=== PATIENT | female | born 1965 | race Caucasian/White ===

== ENCOUNTER 2020-06-22 08:04 | Outpatient (REF) | payer OTHER, SELFPAY ==
[2020-06-22 11:25] LABS: MANUAL DIFF FLAG NO
[2020-06-22 11:32] LABS: Basophils Absolute Auto 0.1 X10*3/uL (0.0-0.2); Basophils Percent Auto 0.9 % (0-2); Eosinophils Absolute Auto 0.2 X10*3/uL (0.0-0.4); Eosinophils Percent Auto 4.4 % (0-4); Hematocrit 42.8 % (37-47); Imm Gran Abs Auto 0.02 X10*3/uL (0.00-0.03); Imm Gran Pct Auto 0.4 % (0.0-0.4); Lymphocytes Absolute Auto 1.7 X10*3/uL (1.2-4.9); Lymphocytes Percent Auto 31.4 % (20-40); Mean Corpuscular HGB Conc 32.7 g/dl (31.0-35.0); Mean Corpuscular Hemoglobin 26.8 pg (27.0-33.0); Mean Corpuscular Volume 81.8 fL (80-98); Mean Platelet Volume 11.3 fL (9.4-12.3); Monocytes Absolute Auto 0.4 X10*3/uL (0.1-1.2); Monocytes Percent Auto 7.5 % (2-11); Neutrophils Percent Auto 55.4 % (45-73); Platelet Count 340 X10*3/uL (160-400); Red Blood Count 5.23 X10*6/uL (4.20-5.50); Red Cell Distribution Width 14.6 % (11.0-16.0); White Blood Count 5.4 X10*3/uL (4.8-10.8)
[2020-06-22 12:05] LABS: Anion Gap 15 (12-20); Blood Urea Nitrogen 22 mg/dL (9-16); Calcium 8.9 mg/dL (8.4-10.2); Carbon Dioxide 24 mmol/L (22-29); Chloride 105 mmol/L (96-108); Cholesterol 217 mg/dL; Estimated Glomerular Filt Rate > 60; Glucose Fasting 93 mg/dL (60-99); HDL Cholesterol 52 mg/dL; LDL Cholesterol Calculated 150 mg/dl; Potassium 4.5 mmol/L (3.3-5.1); Sodium 139 mmol/L (135-145); Triglycerides 76 mg/dL
[2020-06-22 12:09] LABS: TSH reflex Free T4 2.23 uIU/mL (0.32-4.0)
[2020-06-23 19:37] LABS: Vitamin B12 610 pg/mL (200-900)
[2020-06-26 13:17] LABS: Vitamin D 25-OH, D2 <4 ng/mL; Vitamin D 25-OH, D3 34 ng/mL; Vitamin D 25-OH, Total 34 ng/mL (30-100)
== END 2020-06-22 08:05 | disposition home or self-care (01) ==
LOC: HO.HMGCLDS 08:04
PROVIDERS: PCP Internal Medicine; Visit Provider Internal Medicine
DX: Z00.01 Encounter for general adult medical examination with abnormal findings (principal); R53.83 Other fatigue; R03.0 Elevated blood-pressure reading, without diagnosis of hypertension; E78.9 Disorder of lipoprotein metabolism, unspecified; E66.01 Morbid (severe) obesity due to excess calories; E03.9 Hypothyroidism, unspecified
CPT/HCPCS: 36415; 80048; 80061; 82306; 82607; 84443; 85025

== ENCOUNTER → 2020-07-20 14:22 | Outpatient (BNVA) | payer OTHER, SELFPAY | PROVIDERS: PCP Internal Medicine; Visit Provider Nurse Practitioner Family ==

== ENCOUNTER 2020-07-28 15:12 | Outpatient (REF) | payer OTHER, SELFPAY ==
[2020-07-28 17:11] LABS: Alanine Aminotransferase 22 U/L (0-31); Albumin Level 4.4 g/dL (3.5-5.0); Alkaline Phosphatase 78 U/L (39-117); Aspartate Amino Transferase 19 U/L (5-31); Bilirubin Direct 0.2 mg/dL (0.0-0.5); Bilirubin Total 0.5 mg/dL (0.0-1.0); Total Protein 7.4 g/dL (6.5-8.0)
== END 2020-07-28 15:13 | disposition home or self-care (01) ==
LOC: HO.HMGCLDS 15:12
PROVIDERS: PCP Internal Medicine; Visit Provider Nurse Practitioner Family
DX: Z12.11 Encounter for screening for malignant neoplasm of colon (principal)
CPT/HCPCS: 36415; 80076

== ENCOUNTER 2020-08-06 08:47 | Outpatient (REF) | payer OTHER, SELFPAY ==
--- NOTE | ~2020-08-06 | MM_ITS ---
EXAMINATION: MM SCREENING DIGITAL BREAST TOMOSYNTHESIS, BILATERAL CLINICAL INFORMATION: Screening. Asymptomatic. The lifetime risk of breast cancer based on the Tyrer-Cuzick Model is 10%. COMPARISON: Mammography: 11/07/2018, 08/22/2017; targeted right breast ultrasound 11/13/2018 TECHNIQUE: Digital breast tomosynthesis is performed in both the craniocaudal and mediolateral oblique views along with computer-aided detection (CAD). Synthesized 2D images are generated from the tomosynthesis. FINDINGS: There are scattered areas of fibroglandular density (ACR BI-RADS breast composition Category b). There are scattered small bilateral smooth nodularity again noted similar to prior studies. A dominant nodule right upper outer breast consistent with cyst on targeted ultrasound 2019 has resolved. There is no significant mass or architectural abnormality. No abnormal calcifications. The axilla and skin contours are unremarkable. MM/MM tomosynthesis screening BI IMPRESSION: 1. No mammographic evidence of malignancy. 2. Interval resolution dominant cyst right breast upper outer quadrant since 2019. ASSESSMENT: BI-RADS 2: Benign RECOMMENDATION: Routine annual mammography screening. This patient's information was entered into a reminder system with a target due date for their next mammogram.
== END 2020-08-06 08:48 | disposition home or self-care (01) ==
LOC: HO.MAMMO 08:47
PROVIDERS: Visit Provider Internal Medicine
DX: Z12.31 Encounter for screening mammogram for malignant neoplasm of breast (principal)
CPT/HCPCS: 77063; 77067

== ENCOUNTER 2021-08-09 09:32 | Outpatient (REF) | payer OTHER, SELFPAY ==
[2021-08-09 11:09] LABS: MANUAL DIFF FLAG NO
[2021-08-09 11:33] LABS: Basophils Absolute Auto 0.1 X10*3/uL (0.0-0.2); Basophils Percent Auto 0.9 % (0-2); Eosinophils Absolute Auto 0.2 X10*3/uL (0.0-0.4); Eosinophils Percent Auto 2.7 % (0-4); Hematocrit 43.7 % (37.0-47.0); Imm Gran Abs Auto 0.03 X10*3/uL (0.00-0.03); Imm Gran Pct Auto 0.5 % (0.0-0.4); Lymphocytes Absolute Auto 1.7 X10*3/uL (1.2-4.9); Lymphocytes Percent Auto 29.2 % (20-40); Mean Corpuscular Hemoglobin 26.2 pg (27.0-33.0); Mean Corpuscular Volume 81.8 fL (80.0-98.0); Mean Platelet Volume 10.4 fL (9.4-12.3); Monocytes Absolute Auto 0.5 X10*3/uL (0.1-1.2); Monocytes Percent Auto 8.4 % (2-11); Neutrophils Absolute Auto 3.4 x10*3/uL (2.0-8.3); Neutrophils Percent Auto 58.3 % (45-73); Platelet Count 333 X10*3/uL (160-400); Red Blood Count 5.34 X10*6/uL (4.20-5.50); White Blood Count 5.9 X10*3/uL (4.8-10.8)
[2021-08-09 11:51] LABS: Alanine Aminotransferase 14 U/L (0-31); Albumin Level 4.2 g/dL (3.5-5.0); Alkaline Phosphatase 80 U/L (39-117); Anion Gap 14 (12-20); Aspartate Amino Transferase 17 U/L (5-31); Bilirubin Direct 0.3 mg/dL (0.0-0.5); Bilirubin Total 0.8 mg/dL (0.0-1.0); Blood Urea Nitrogen 17 mg/dL (9-16); Calcium 9.3 mg/dL (8.4-10.2); Carbon Dioxide 23 mmol/L (22-29); Chloride 106 mmol/L (96-108); Estimated Glomerular Filt Rate > 60; Glucose Fasting 99 mg/dL (60-99); Potassium 4.6 mmol/L (3.3-5.1); Sodium 138 mmol/L (135-145); Total Protein 7.5 g/dL (6.5-8.0)
[2021-08-09 12:35] LABS: TSH reflex Free T4 3.38 uIU/mL (0.32-4.0)
== END 2021-08-09 09:33 | disposition home or self-care (01) ==
LOC: HO.HMGCLDS 09:32
PROVIDERS: PCP Internal Medicine; Visit Provider Internal Medicine
DX: E03.9 Hypothyroidism, unspecified (principal); E66.01 Morbid (severe) obesity due to excess calories; E78.9 Disorder of lipoprotein metabolism, unspecified
CPT/HCPCS: 36415; 80053; 80076; 82248; 84443; 85025

== ENCOUNTER 2023-01-30 15:05 | Outpatient (AMB) | payer OTHER, SELFPAY ==
--- NOTE | 2023-01-30 15:06 | A.OFFPC_ITS ---
Vital Signs 01/30/23 15:16 Height 5 ft 8 in Weight 278 lb 4 oz BMI 42.3 BP 136/86 Blood Pressure Location Rt brachial Position Sitting Pulse 102 H Pulse Source Pulse Oximeter Pulse Oximetry (%) 96 Oxygen Delivery Method Room Air Intake Visit Reasons: Medication Review Allergies bupropion [From Wellbutrin] Adverse Reaction (Intermediate, Verified 01/30/23 15:06) anxiety, ringing in ears Medication List - Last Reconciled 01/30/23 by Anastacio Bella MD levothyroxine 150 mcg PO DAILY omeprazole 20 mg PO DAILY 90 days Tobacco use date assessed: 01/30/23 Dental Screening Dental Screen Date: 01/30/23 Did you have a dental visit in the last 12 months?: Yes Did you have a dental problem in the last 6 months where you did not have access to dental care?: No Was dental information given to patient?: Patient has dentist HPI Medication Review HPI Details Patient is a 57-year-old female came in today for regular follow-up visit. Last visit was July last year Patient says that there was some problems with finding place to stay So she was taking with her daughter but finally she has her own place. She has not been taking her levothyroxine regularly, she is feeling the symptoms are hypothyroidism With swelling and puffiness around her eyes constipation and brittle nails. Patient is due for labs Hypothyroidism: Patient is taking levothyroxine 150 mcg , refill sent patient is to do labs in 6 weeks Chronic GERD stable with omeprazole 20 mg. BMI is 42.3 patient is morbidly obese, she says that it is difficult for her lose weight but she is trying. Follow-up 6 months for physical exam notified patient that if she is not able to come in we can always do a telemedicine visit but we need to see her periodically. In order to continue prescribing medication. [facility] Medical History GERD (gastroesophageal reflux disease) Hypothyroid Morbid obesity Surgical History No pertinent past surgical history Family History Father Myocardial infarction Mother Hyperlipidemia Alzheimer's disease Dementia CVD (cardiovascular disease) Brother Addisons disease Maternal Grandmother No problems noted. Maternal Grandfather No problems noted. Paternal Grandfather No problems noted. Paternal Grandmother No problems noted. Paternal Uncle Diabetes mellitus Brother No problems noted. Brother No problems noted. Brother No problems noted. Sister No problems noted. Daughter No problems noted. Other Mental health disorder Social History Housing: Apartment Alcohol intake: current Alcohol intake frequency: holidays/special occasions only Patient Tobacco Use Status: Former Tobacco user Years Smoked: 30 years e-Cigarette/Vaping Use: Never Used Current occupational status: employed Cognitive needs: No Hearing needs: No Vision needs: No Questionnaire PHQ-9 Over the last 2 weeks, how often have you been bothered by any of the following problems? 1. Little interest or pleasure in doing things: not at all 2. Feeling down, depressed, or hopeless: not at all 3. Trouble falling or staying asleep, or sleeping too much: not at all 4. Feeling tired or having little energy: not at all 5. Poor appetite or overeating: not at all 6. Feeling bad about yourself - or that you are a failure or have let yourself or your family down: not at all 7. Trouble concentrating on things, such as reading the newspaper or watching television: not at all 8. Moving or speaking so slowly that other people could have noticed. Or the opposite - being so fidgety or restless that you have been moving around a lot more than usual: not at all 9. Thoughts that you would be better off or of hurting yourself in some way: not at all Total score: 0 Depression Screening Interpretation: Negative Depression Screening Done: Yes 52670 - PHQ-9 Billing: Yes Source: Developed by Drs. Yoni Eaton, Maris Omalley, Cong Cote and colleagues, with an educational alexa from [employer]. Thrive Questionnaire Date Thrive assessed: 08/09/21 AUDIT C Alcohol Use Questionnaire (AUDIT-C) 1. How often do you have a drink containing alcohol?: Never 3. How often do you have six or more drinks on one occasion?: Never Total Score: 0 Score Reviewed/Action Taken: Yes MONICO-7 AMB Questionnaire MONICO-7 Date MONICO - 7 assessed: 08/09/21 Source: Developed by Drs. Yoni Eaton, Maris Omalley, Cong Cote and colleagues, with an educational alexa from [employer]. Review of Systems Const Denies chills and Denies fever(s) ENT Denies epistaxis and Denies nasal discharge Card Denies chest pain Resp Denies chest congestion, Denies cough and Denies hemoptysis GI Denies diarrhea and Denies nausea Skin/Breast Denies rash Neuro Reports no additional complaints Psych Reports no additional complaints Endo Reports no additional complaints Physical exam (Primary Care) Vital Signs: Last Vital Signs Pulse 102 H 01/30/23 15:16 BP 136/86 01/30/23 15:16 Pulse Ox 96 01/30/23 15:16 Oxygen Delivery Method Room Air 01/30/23 15:16 BMI result Body Mass Index 42.3 Tobacco/Smoking Status: Tobacco use Status Tobacco use date assessed 01/30/23 01/30/23 15:08 Patient Tobacco Use Status Former Tobacco user 01/30/23 15:08 e-Cigarette/Vaping Use Never Used 01/30/23 15:16 Depression Screening Interpretation: Negative Thrive Assessment: Date of Thrive Assessment Date Thrive assessed 08/09/21 01/30/23 15:08 Const General: cooperative, comfortable and no acute distress Orientation/consciousness: patient oriented x3 HENMT Head: Yes normocephalic Eyes General: appearance normal, both eyes and all related structures Neck Neck: Yes supple Resp Effort & Inspection: normal respiratory effort, no cough and no stridor Cardio Rhythm: regular rhythm Heart sounds: S1 normal heart sound present and S2 normal heart sound present Skin General skin exam: turgor normal Neuro General: patient oriented x3, tone normal and moves all extremities Extrem Right lower extremity: no edema Left lower extremity: no edema Assessment and Plan Assessment & Plan (1) Hypothyroidism: Code(s): E03.9 - Hypothyroidism, unspecified Qualifiers: Hypothyroidism type: unspecified Qualified Code(s): E03.9 - Hypothyroidism, unspecified (2) Morbid obesity due to excess calories: Code(s): E66.01 - Morbid (severe) obesity due to excess calories (3) Chronic GERD: Code(s): K21.9 - Gastro-esophageal reflux disease without esophagitis (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 Last visit was July last year Patient says that there was some problems with finding place to stay So she was taking with her daughter but finally she has her own place. She has not been taking her levothyroxine regularly, she is feeling the symptoms are hypothyroidism With swelling and puffiness around her eyes constipation and brittle nails. Patient is due for labs Hypothyroidism: Patient is taking levothyroxine 150 mcg , refill sent patient is to do labs in 6 weeks Chronic GERD stable with omeprazole 20 mg. Patient have a history of lipid metabolism disorder, and strong family history of cardiac events. I have added lipids to her labs patient is to do labs fasting BMI is 42.3 patient is morbidly obese, she says that it is difficult for her lose weight but she is trying. Follow-up 6 months for physical exam notified patient that if she is not able to come in we can always do a telemedicine visit but we need to see her periodically. In order to continue prescribing medication. Orders: Orders TSH reflex Free T4 Today E03.9 - Hypothyroidism, unspecified, E66.01 - Morbid (severe) obesity due to excess calories, E78.9 - Disorder of lipoprotein metabolism, unspecified, K21.9 - Gastro-esophageal reflux disease without esophagitis Complete Blood Count Auto Diff Today E03.9 - Hypothyroidism, unspecified, E66.01 - Morbid (severe) obesity due to excess calories, E78.9 - Disorder of lipoprotein metabolism, unspecified, K21.9 - Gastro-esophageal reflux disease without esophagitis Lipid Panel Today E78.9 - Disorder of lipoprotein metabolism, unspecified Comprehensive [place]. Panel Fast Today E78.9 - Disorder of lipoprotein metabolism, unspecified Medications: Refilled omeprazole 20 mg PO DAILY 90 caps 1RF 90 days levothyroxine take one tab in am 6 days a week 150 mcg PO DAILY 90 tabs 0RF Coding Level of Care Code Est Pt Level 4 (69181) Diagnoses Hypothyroidism, unspecified type E03.9 Hypothyroidism type: unspecified Morbid obesity due to excess calories E66.01 Chronic GERD K21.9 Lipid metabolism disorder E78.9
[2023-01-30 15:16] VITALS: BP 136/86; PULSE 102; O2SAT 96; BMI 42.3
== END 2023-01-30 15:41 | disposition home or self-care (01) ==
PROVIDERS: PCP Internal Medicine; Visit Provider Internal Medicine
DX: E03.9 Hypothyroidism, unspecified (principal); E66.01 Morbid (severe) obesity due to excess calories; Z68.41 Body mass index [BMI] 40.0-44.9, adult; K21.9 Gastro-esophageal reflux disease without esophagitis; E78.9 Disorder of lipoprotein metabolism, unspecified
CPT/HCPCS: 99214

== ENCOUNTER 2023-04-23 09:20 | Outpatient (REF) | payer OTHER, SELFPAY ==
[2023-04-23 11:12] LABS: MANUAL DIFF FLAG NO
[2023-04-23 11:30] LABS: Basophils Absolute Auto 0.1 X10*3/uL (0.0-0.2); Basophils Percent Auto 0.8 % (0-2); Eosinophils Absolute Auto 0.3 X10*3/uL (0.0-0.4); Eosinophils Percent Auto 4.9 % (0-4); Hematocrit 42.8 % (37.0-47.0); Hemoglobin 13.8 g/dl (12.0-16.0); Imm Gran Abs Auto 0.01 X10*3/uL (0.00-0.03); Imm Gran Pct Auto 0.2 % (0.0-0.4); Lymphocytes Absolute Auto 1.8 X10*3/uL (1.2-4.9); Lymphocytes Percent Auto 28.9 % (20-40); Mean Corpuscular HGB Conc 32.2 g/dl (31.0-35.0); Mean Corpuscular Hemoglobin 26.4 pg (27.0-33.0); Mean Platelet Volume 10.5 fL (9.4-12.3); Monocytes Absolute Auto 0.5 X10*3/uL (0.1-1.2); Neutrophils Absolute Auto 3.6 x10*3/uL (2.0-8.3); Neutrophils Percent Auto 57.2 % (45-73); Platelet Count 314 X10*3/uL (160-400); Red Blood Count 5.22 X10*6/uL (4.20-5.50); Red Cell Distribution Width 14.1 % (11.0-16.0); White Blood Count 6.3 X10*3/uL (4.8-10.8)
[2023-04-23 11:55] LABS: Alanine Aminotransferase 13 U/L (0-31); Alkaline Phosphatase 84 U/L (39-117); Anion Gap 13 (12-20); Aspartate Amino Transferase 16 U/L (5-31); Bilirubin Total 0.4 mg/dL (0.0-1.0); Blood Urea Nitrogen 20 mg/dL (9-16); Calcium 9.1 mg/dL (8.4-10.2); Carbon Dioxide 25 mmol/L (22-29); Chloride 107 mmol/L (96-108); Cholesterol 186 mg/dL (<200); Estimated Glomerular Filt Rate > 60; Glucose Fasting 95 mg/dL (60-99); HDL Cholesterol 53 mg/dL (>40); LDL Cholesterol Calculated 117 mg/dL (<100); Potassium 4.5 mmol/L (3.3-5.1); Sodium 140 mmol/L (135-145); Total Protein 7.4 g/dL (6.5-8.0); Triglycerides 80 mg/dL (<150)
[2023-04-23 12:10] LABS: TSH reflex Free T4 3.41 uIU/mL (0.32-4.0)
== END 2023-04-23 09:21 | disposition home or self-care (01) ==
LOC: HO.HMGCLDS 09:20
PROVIDERS: PCP Internal Medicine; Visit Provider Internal Medicine
DX: E66.01 Morbid (severe) obesity due to excess calories (principal); K21.9 Gastro-esophageal reflux disease without esophagitis; E03.9 Hypothyroidism, unspecified; E78.9 Disorder of lipoprotein metabolism, unspecified
CPT/HCPCS: 36415; 80053; 80061; 84443; 85025

== ENCOUNTER 2023-07-04 15:15 | Outpatient (REF) | payer OTHER, SELFPAY | END 2023-07-04 15:16 | disposition home or self-care (01) | LOC: HO.MAMMO 15:15 | PROVIDERS: PCP Internal Medicine; Visit Provider Internal Medicine | DX: Z12.31 Encounter for screening mammogram for malignant neoplasm of breast (principal) | CPT/HCPCS: 77063; 77067 ==

== ENCOUNTER → 2023-07-04 15:30 | Outpatient (BNV) | payer OTHER, SELFPAY | PROVIDERS: PCP Internal Medicine; Visit Provider Radiology Diagnostic Radiology | DX: Z12.31 Encounter for screening mammogram for malignant neoplasm of breast (principal) | CPT/HCPCS: 77063; 77067 ==

== ENCOUNTER 2023-08-13 12:52 | Outpatient (AMB) | payer OTHER, SELFPAY ==
[2023-08-13 13:02] VITALS: BP 122/76; PULSE 100; O2SAT 97; BMI 40.7
--- NOTE | 2023-08-13 13:02 | MHC.PC.OV ---
Vital Signs 08/13/23 13:02 Height 5 ft 8 in Weight 268 lb BMI 40.7 BP 122/76 Blood Pressure Location Rt brachial Position Sitting Pulse 100 Pulse Source Pulse Oximeter Pulse Oximetry (%) 97 Oxygen Delivery Method Room Air Intake Visit Reasons: Annual PE Intake Note: Pt is here today for PE. Allergies bupropion [From Wellbutrin] Adverse Reaction (Intermediate, Verified 08/13/23 13:03) anxiety, ringing in ears Medication List - Last Reconciled 08/13/23 by Anastacio Bella MD levothyroxine 150 mcg PO DAILY omeprazole 20 mg PO DAILY 90 days Tobacco use date assessed: 08/13/23 Dental Screening Dental Screen Date: 08/13/23 Did you have a dental visit in the last 12 months?: Yes Did you have a dental problem in the last 6 months where you did not have access to dental care?: No Was dental information given to patient?: Patient has dentist HPI Annual PE HPI Details Patient is 58-year-old female came in for physical examination Patient is gradually losing weight she is on a diet Complaining of joint aches and pains for that she is taking Tylenol Patient never had colonoscopy she does not wanted She wanted Cologuard which I did order however she has not sent the sample yet Due for Pap smear, tiny her placed Continue levothyroxine 150 mcg and omeprazole 20 mg for chronic GERD Due for labs Follow-up 6 months, labs are needed before visit. [facility] Medical History GERD (gastroesophageal reflux disease) Hypothyroid Morbid obesity Surgical History No pertinent past surgical history Family History Father Myocardial infarction Mother Hyperlipidemia Alzheimer's disease Dementia CVD (cardiovascular disease) Brother Addisons disease Maternal Grandmother No problems noted. Maternal Grandfather No problems noted. Paternal Grandfather No problems noted. Paternal Grandmother No problems noted. Paternal Uncle Diabetes mellitus Brother No problems noted. Brother No problems noted. Brother No problems noted. Sister No problems noted. Daughter No problems noted. Other Mental health disorder Social History Housing: Apartment Alcohol intake: current Alcohol intake frequency: holidays/special occasions only Patient Tobacco Use Status: Former Tobacco user Years Smoked: 30 years e-Cigarette/Vaping Use: Never Used service: No Current occupational status: employed Cognitive needs: No Hearing needs: No Vision needs: No Questionnaire PHQ-9 Over the last 2 weeks, how often have you been bothered by any of the following problems? 1. Little interest or pleasure in doing things: not at all 2. Feeling down, depressed, or hopeless: not at all 3. Trouble falling or staying asleep, or sleeping too much: not at all 4. Feeling tired or having little energy: not at all 5. Poor appetite or overeating: not at all 6. Feeling bad about yourself - or that you are a failure or have let yourself or your family down: not at all 7. Trouble concentrating on things, such as reading the newspaper or watching television: not at all 8. Moving or speaking so slowly that other people could have noticed. Or the opposite - being so fidgety or restless that you have been moving around a lot more than usual: not at all 9. Thoughts that you would be better off or of hurting yourself in some way: not at all Total score: 0 Depression Screening Interpretation: Negative Depression Screening Done: Yes 32993 - PHQ-9 Billing: Yes Source: Developed by Drs. Yoni Eaton, Maris Omalley, Cong Cote and colleagues, with an educational alexa from [employer]. Thrive Questionnaire Date Thrive assessed: 08/13/23 I am a: Patient What is your living situation today?: I have a steady place to live Within the past 12 months, did the food you bought not last and you didn't have the money to get more?: Never true Within the past 12 months, did you worry whether your food would run out before you got money to buy more?: Never true Do you have trouble paying for medicines?: No Do you have trouble getting transportation to medical appointments?: No Do you have trouble paying your heating and electricity bill?: No Do you have trouble taking care of your child, family member or friend?: No Do you have trouble with day-to-day activities such as bathing, preparing meals, shopping, managing finances, etc.?: No Are you currently unemployed and looking for a job?: No Are you interested in more education?: No Please select the resources that you would like help with: None Currently or been in a relationship where the following occur: no concerns reported THRIVE Score: 0 AUDIT C Alcohol Use Questionnaire (AUDIT-C) 1. How often do you have a drink containing alcohol?: Monthly or less 2. How many drinks containing alcohol do you have on a typical day when you are drinking?: 1 or 2 3. How often do you have six or more drinks on one occasion?: Never Total Score: 1 Score Reviewed/Action Taken: Yes MONICO-7 AMB Questionnaire MONICO-7 Date MONICO - 7 assessed: 08/13/23 Feeling nervous, anxious, or on edge: 0 = Not at all Not being able to stop or control worryin = Not at all Worrying too much about different things: 0 = Not at all Trouble relaxin = Not at all Being so restless that it is hard to sit still: 0 = Not at all Becoming easily annoyed or irritable: 0 = Not at all Feeling afraid as if something awful might happen: 0 = Not at all Total MONICO-7 score (0-4 normal; 5-9 mild; 10-14 moderate; 15-21 severe): 0 Source: Developed by Drs. Yoni Eaton, Maris Omalley, Cong Cote and colleagues, with an educational alexa from [employer]. MONICO-7 Assessment Billing MONICO-7 Assessment Tool: MONICO-7 Assessment 00396 Review of Systems Const Denies chills, Denies fever(s) and Denies headache(s) Eyes Denies blurry vision ENT Denies headache(s), Denies nasal discharge, Denies nasal obstruction, Denies odynophagia and Denies sinus pain Card Denies chest pain at rest and Denies chest pain with activity Resp Denies cough and Denies hemoptysis GI Denies diarrhea, Denies odynophagia, Denies vomiting and Denies hematemesis Reports as per HPI Musc Denies abnormal gait Skin/Breast Reports as per HPI Neuro Denies Neuro-related abnormal movements, Denies Abnormal speech present, Denies abnormal gait, Denies headache(s) and Denies Sensory deficit (Neuro) Psych Denies mood swings and Denies paranoia Endo Reports as per HPI Nadir/Lymph Reports as per HPI Aller/Immun Reports as per HPI Physical exam (Primary Care) Vital Signs: Last Vital Signs Pulse 100 08/13/23 13:02 BP 122/76 08/13/23 13:02 Pulse Ox 97 08/13/23 13:02 Oxygen Delivery Method Room Air 08/13/23 13:02 BMI result Body Mass Index 40.7 Tobacco/Smoking Status: Tobacco use Status Tobacco use date assessed 08/13/23 08/13/23 13:08 Patient Tobacco Use Status Former Tobacco user 08/13/23 13:08 e-Cigarette/Vaping Use Never Used 08/13/23 13:08 PHQ-9: PHQ-9 Score PHQ-9: Total score 0 08/13/23 13:42 Depression Screening Interpretation: Negative Thrive Assessment: Date of Thrive Assessment Date Thrive assessed 08/13/23 08/13/23 13:42 Currently or been in a relationship where the following occur: no concerns reported Const General: cooperative, comfortable and no acute distress Orientation/consciousness: patient oriented x3 HENMT Head: Yes normocephalic and Yes atraumatic Eyes General: appearance normal, both eyes and all related structures Pupils: Equal, round and reactive pupils present EOM: EOMs intact bilaterally Neck Neck: Yes supple and No lymphadenopathy Thyroid: Thyroid normal Lymphatic: no lymphadenopathy noted Resp Effort & Inspection: normal respiratory effort and able to speak in complete sentences Auscultation: clear to auscultation bilaterally Cardio Heart sounds: S1 normal heart sound present and S2 normal heart sound present GI Palpation (GI): Soft to palpation and nontender Auscultation: normal bowel sounds General: Yes no CVA tenderness Back/Spine/Pelvis Back: no CVA tenderness Skin General skin exam: elasticity normal and turgor normal Neuro General: patient oriented x3 and gait normal Cranial nerves: Yes Equal, round and reactive pupils present Speech: No Abnormal speech present Sensory Exam: No Sensory deficit (Neuro) Coordination: tandem gait normal and Romberg test negative Extrem General: Yes normal exam except as noted and No edema Assessment and Plan Assessment & Plan (1) Encounter for general adult medical examination with abnormal findings: Code(s): Z00.01 - Encounter for general adult medical examination with abnormal findings (2) 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 - Disorder of lipoprotein metabolism, unspecified (3) Hypothyroidism: Code(s): E03.9 - Hypothyroidism, unspecified Qualifiers: Hypothyroidism type: unspecified Qualified Code(s): E03.9 - Hypothyroidism, unspecified (4) Chronic GERD: Code(s): K21.9 - Gastro-esophageal reflux disease without esophagitis Plan Patient is 58-year-old female came in for physical examination Patient is gradually losing weight she is on a diet Complaining of joint aches and pains for that she is taking Tylenol Patient never had colonoscopy she does not wanted She wanted Cologuard which I did order however she has not sent the sample yet Due for Pap smear, tiny her placed Continue levothyroxine 150 mcg and omeprazole 20 mg for chronic GERD Due for labs Follow-up 6 months, labs are needed before visit. Declined breast exam Orders: Orders Comprehensive [place]. Panel Fast Today E03.9 - Hypothyroidism, unspecified, E78.9 - Disorder of lipoprotein metabolism, unspecified, K21.9 - Gastro-esophageal reflux disease without esophagitis, Z00.01 - Encounter for general adult medical examination with abnormal findings Lipid Panel Today E03.9 - Hypothyroidism, unspecified, E78.9 - Disorder of lipoprotein metabolism, unspecified, K21.9 - Gastro-esophageal reflux disease without esophagitis, Z00.01 - Encounter for general adult medical examination with abnormal findings TSH reflex Free T4 Today E03.9 - Hypothyroidism, unspecified, E78.9 - Disorder of lipoprotein metabolism, unspecified, K21.9 - Gastro-esophageal reflux disease without esophagitis, Z00.01 - Encounter for general adult medical examination with abnormal findings Complete Blood Count Auto Diff Today E03.9 - Hypothyroidism, unspecified, E78.9 - Disorder of lipoprotein metabolism, unspecified, K21.9 - Gastro-esophageal reflux disease without esophagitis, Z00.01 - Encounter for general adult medical examination with abnormal findings TSH reflex Free T4 6 Months E03.9 - Hypothyroidism, unspecified, E78.9 - Disorder of lipoprotein metabolism, unspecified Comprehensive Met. Panel 6 Months E03.9 - Hypothyroidism, unspecified, E78.9 - Disorder of lipoprotein metabolism, unspecified Referrals [employer] Referral Z01.419 - Encounter for gynecological examination (general) (routine) without abnormal findings Medications: Refilled levothyroxine take one tab in am 6 days a week 150 mcg PO DAILY 90 tabs 1RF omeprazole 20 mg PO DAILY 90 caps 1RF 90 days Coding Level of Care Code Est Pt Prev Care 40-64y(49817) Diagnoses Encounter for general adult medical examination with abnormal findings Z00.01 Lipid metabolism disorder E78.9 Hypothyroidism, unspecified type E03.9 Hypothyroidism type: unspecified Chronic GERD K21.9 Additional Codes MONICO-7 Assessment Billing - MONICO-7 Assessment Tool: MONICO-7 Assessment 38025 ([id number])
== END 2023-08-13 13:30 | disposition home or self-care (01) ==
PROVIDERS: PCP Internal Medicine; Visit Provider Internal Medicine
DX: Z00.00 Encounter for general adult medical examination without abnormal findings (principal); E78.9 Disorder of lipoprotein metabolism, unspecified; E03.9 Hypothyroidism, unspecified; K21.9 Gastro-esophageal reflux disease without esophagitis
CPT/HCPCS: 99396

== ENCOUNTER 2023-08-17 09:22 | Outpatient (REF) | payer OTHER, SELFPAY ==
[2023-08-17 11:57] LABS: MANUAL DIFF FLAG NO
[2023-08-17 11:59] LABS: Basophils Absolute Auto 0.1 X10*3/uL (0.0-0.2); Eosinophils Absolute Auto 0.2 X10*3/uL (0.0-0.4); Eosinophils Percent Auto 4.2 % (0-4); Hematocrit 42.1 % (37.0-47.0); Hemoglobin 13.8 g/dl (12.0-16.0); Imm Gran Abs Auto 0.01 X10*3/uL (0.00-0.03); Imm Gran Pct Auto 0.2 % (0.0-0.4); Lymphocytes Absolute Auto 1.9 X10*3/uL (1.2-4.9); Lymphocytes Percent Auto 32.9 % (20-40); Mean Corpuscular HGB Conc 32.8 g/dl (31.0-35.0); Mean Corpuscular Volume 82.4 fL (80.0-98.0); Mean Platelet Volume 10.4 fL (9.4-12.3); Monocytes Absolute Auto 0.5 X10*3/uL (0.1-1.2); Monocytes Percent Auto 8.4 % (2-11); Neutrophils Absolute Auto 3.1 x10*3/uL (2.0-8.3); Neutrophils Percent Auto 53.3 % (45-73); Platelet Count 332 X10*3/uL (160-400); Red Blood Count 5.11 X10*6/uL (4.20-5.50); Red Cell Distribution Width 15.2 % (11.0-16.0); White Blood Count 5.7 X10*3/uL (4.8-10.8)
[2023-08-17 12:27] LABS: Alanine Aminotransferase 14 U/L (0-31); Alkaline Phosphatase 76 U/L (39-117); Anion Gap 12 (12-20); Aspartate Amino Transferase 16 U/L (5-31); Bilirubin Total 0.5 mg/dL (0.0-1.0); Blood Urea Nitrogen 14 mg/dL (9-16); Calcium 9.1 mg/dL (8.4-10.2); Carbon Dioxide 22 mmol/L (22-29); Chloride 109 mmol/L (96-108); Cholesterol 194 mg/dL (<200); Estimated Glomerular Filt Rate > 60; Glucose Fasting 103 mg/dL (60-99); HDL Cholesterol 49 mg/dL (>40); LDL Cholesterol Calculated 130 mg/dL (<100); Potassium 4.5 mmol/L (3.3-5.1); Sodium 138 mmol/L (135-145); Total Protein 7.3 g/dL (6.5-8.0); Triglycerides 76 mg/dL (<150)
[2023-08-17 12:34] LABS: TSH reflex Free T4 3.57 uIU/mL (0.32-4.0)
== END 2023-08-17 09:23 | disposition home or self-care (01) ==
LOC: HO.HMGCLDS 09:22
PROVIDERS: PCP Internal Medicine; Visit Provider Internal Medicine
DX: Z00.01 Encounter for general adult medical examination with abnormal findings (principal); E78.9 Disorder of lipoprotein metabolism, unspecified; E03.9 Hypothyroidism, unspecified; K21.9 Gastro-esophageal reflux disease without esophagitis
CPT/HCPCS: 36415; 80053; 80061; 84443; 85025

== ENCOUNTER 2024-02-11 15:18 | Outpatient (AMB) | payer OTHER, SELFPAY ==
[2024-02-11 15:29] VITALS: BP 134/84; PULSE 88; O2SAT 97; BMI 40.8
--- NOTE | 2024-02-11 15:29 | MHC.PC.OV ---
Vital Signs 02/11/24 15:29 Height 5 ft 8 in Weight 268 lb 4 oz BMI 40.8 BP 134/84 Blood Pressure Location Rt brachial Position Sitting Pulse 88 Pulse Source Pulse Oximeter Pulse Oximetry (%) 97 Oxygen Delivery Method Room Air Intake Visit Reasons: 6 Month F/U Allergies bupropion [From Wellbutrin] Adverse Reaction (Intermediate, Verified 02/11/24 15:31) anxiety, ringing in ears Medication List - Last Reconciled 02/11/24 by Anastacio Bella MD amoxicillin 875 mg PO BID 7 days levothyroxine 150 mcg PO DAILY omeprazole 20 mg PO DAILY 90 days Tobacco use date assessed: 02/11/24 Dental Screening Dental Screen Date: 02/11/24 Did you have a dental visit in the last 12 months?: Yes Did you have a dental problem in the last 6 months where you did not have access to dental care?: No Was dental information given to patient?: Patient has dentist HPI 6 Month F/U HPI Details Patient is 58-year-old female came in for her six-month follow-up appointment Patient is on levothyroxine 150 mcg, due for labs Order is already in, patient forgot to do them GERD is stable with omeprazole 20 mg BMI is still elevated patient is trying to lose weight She also have arthritis both knees which active every now and then She is currently taking Tylenol Arthritis b.i.d. We talked about that, I would recommend to alternate 1 Tylenol with 1 a leave In a process to get dentures Follow-up 1 year for physical exam [facility] Medical History GERD (gastroesophageal reflux disease) Hypothyroid Morbid obesity Surgical History No pertinent past surgical history Family History Father Myocardial infarction Mother Hyperlipidemia Alzheimer's disease Dementia CVD (cardiovascular disease) Brother Addisons disease Maternal Grandmother No problems noted. Maternal Grandfather No problems noted. Paternal Grandfather No problems noted. Paternal Grandmother No problems noted. Paternal Uncle Diabetes mellitus Brother No problems noted. Brother No problems noted. Brother No problems noted. Sister No problems noted. Daughter No problems noted. Other Mental health disorder Social History Housing: Apartment Alcohol intake: current Alcohol intake frequency: holidays/special occasions only Patient Tobacco Use Status: Former Tobacco user Years Smoked: 30 years e-Cigarette/Vaping Use: Never Used service: No Current occupational status: employed Cognitive needs: No Hearing needs: No Vision needs: No Questionnaire PHQ-9 Over the last 2 weeks, how often have you been bothered by any of the following problems? 1. Little interest or pleasure in doing things: not at all 2. Feeling down, depressed, or hopeless: not at all 3. Trouble falling or staying asleep, or sleeping too much: not at all 4. Feeling tired or having little energy: not at all 5. Poor appetite or overeating: not at all 6. Feeling bad about yourself - or that you are a failure or have let yourself or your family down: not at all 7. Trouble concentrating on things, such as reading the newspaper or watching television: not at all 8. Moving or speaking so slowly that other people could have noticed. Or the opposite - being so fidgety or restless that you have been moving around a lot more than usual: not at all 9. Thoughts that you would be better off or of hurting yourself in some way: not at all Total score: 0 Depression Screening Interpretation: Negative Depression Screening Done: Yes 22244 - PHQ-9 Billing: Yes Source: Developed by Drs. Yoni Eaton, Maris Omalley, Cong Cote and colleagues, with an educational alexa from [employer]. Thrive Questionnaire Date Thrive assessed: 08/13/23 I am a: Patient What is your living situation today?: I have a steady place to live Within the past 12 months, did the food you bought not last and you didn't have the money to get more?: Never true Within the past 12 months, did you worry whether your food would run out before you got money to buy more?: Never true Do you have trouble paying for medicines?: No Do you have trouble getting transportation to medical appointments?: No Do you have trouble paying your heating and electricity bill?: No Do you have trouble taking care of your child, family member or friend?: No Do you have trouble with day-to-day activities such as bathing, preparing meals, shopping, managing finances, etc.?: No Are you interested in more education?: No Please select the resources that you would like help with: None Currently or been in a relationship where the following occur: No concerns reported THRIVE Score: 0 AUDIT C Alcohol Use Questionnaire (AUDIT-C) 1. How often do you have a drink containing alcohol?: Monthly or less 2. How many drinks containing alcohol do you have on a typical day when you are drinking?: 1 or 2 3. How often do you have six or more drinks on one occasion?: Never Total Score: 1 MONICO-7 AMB Questionnaire MONICO-7 Date MONICO - 7 assessed: 08/13/23 Feeling nervous, anxious, or on edge: 0 = Not at all Not being able to stop or control worryin = Not at all Worrying too much about different things: 0 = Not at all Trouble relaxin = Not at all Being so restless that it is hard to sit still: 0 = Not at all Becoming easily annoyed or irritable: 0 = Not at all Feeling afraid as if something awful might happen: 0 = Not at all Total MONICO-7 score (0-4 normal; 5-9 mild; 10-14 moderate; 15-21 severe): 0 Source: Developed by Drs. Yoni Eaton, Maris Omalley, Cong Cote and colleagues, with an educational alexa from [employer]. Review of Systems Const Denies chills and Denies fever(s) ENT Denies epistaxis and Denies nasal discharge Card Denies chest pain Resp Denies chest congestion, Denies cough and Denies hemoptysis GI Denies diarrhea and Denies nausea Skin/Breast Denies rash Neuro Reports no additional complaints Psych Reports no additional complaints Endo Reports no additional complaints Physical exam (Primary Care) Vital Signs: Last Vital Signs Pulse 88 02/11/24 15:29 BP 134/84 02/11/24 15:29 Pulse Ox 97 02/11/24 15:29 Oxygen Delivery Method Room Air 02/11/24 15:29 BMI result Body Mass Index 40.8 Tobacco/Smoking Status: Tobacco use Status Tobacco use date assessed 02/11/24 02/11/24 15:31 Patient Tobacco Use Status Former Tobacco user 02/11/24 15:31 e-Cigarette/Vaping Use Never Used 02/11/24 15:31 Depression Screening Interpretation: Negative Thrive Assessment: Date of Thrive Assessment Date Thrive assessed 08/13/23 02/11/24 15:31 Currently or been in a relationship where the following occur: No concerns reported Const General: cooperative, comfortable and no acute distress Orientation/consciousness: patient oriented x3 HENMT Head: Yes normocephalic Eyes General: appearance normal, both eyes and all related structures Neck Neck: Yes supple Resp Effort & Inspection: normal respiratory effort, no cough and no stridor Cardio Rhythm: regular rhythm Heart sounds: S1 normal heart sound present and S2 normal heart sound present Skin General skin exam: turgor normal Neuro General: patient oriented x3, tone normal and moves all extremities Extrem Right lower extremity: no edema Left lower extremity: no edema Coding Level of Care Code Est Pt Level 3 (43076) Diagnoses Hypothyroidism, unspecified type E03.9 Hypothyroidism type: unspecified Chronic GERD K21.9 Morbid obesity due to excess calories E66.01 Assessment & Plan Assessment & Plan (1) Hypothyroidism: Code(s): E03.9 - Hypothyroidism, unspecified Category: Medical Qualifiers: Hypothyroidism type: unspecified Qualified Code(s): E03.9 - Hypothyroidism, unspecified (2) Chronic GERD: Code(s): K21.9 - Gastro-esophageal reflux disease without esophagitis Category: Medical (3) Morbid obesity due to excess calories: Code(s): E66.01 - Morbid (severe) obesity due to excess calories Category: Medical Plan Patient is 58-year-old female came in for her six-month follow-up appointment Patient is on levothyroxine 150 mcg, due for labs Order is already in, patient forgot to do them GERD is stable with omeprazole 20 mg BMI is still elevated patient is trying to lose weight She also have arthritis both knees which active every now and then She is currently taking Tylenol Arthritis b.i.d. We talked about that, I would recommend to alternate 1 Tylenol with 1 a leave In a process to get dentures Follow-up 1 year for physical exam Orders: Orders Complete Blood Count Auto Diff 6 Months E03.9 - Hypothyroidism, unspecified, E66.01 - Morbid (severe) obesity due to excess calories, K21.9 - Gastro-esophageal reflux disease without esophagitis Comprehensive [place]. Panel Fast 6 Months E03.9 - Hypothyroidism, unspecified, E66.01 - Morbid (severe) obesity due to excess calories, K21.9 - Gastro-esophageal reflux disease without esophagitis Lipid Panel 6 Months E03.9 - Hypothyroidism, unspecified, E66.01 - Morbid (severe) obesity due to excess calories, K21.9 - Gastro-esophageal reflux disease without esophagitis Hemoglobin A1c 6 Months E03.9 - Hypothyroidism, unspecified, E66.01 - Morbid (severe) obesity due to excess calories, K21.9 - Gastro-esophageal reflux disease without esophagitis Vitamin D 25-OH (D2 and D3) 6 Months E03.9 - Hypothyroidism, unspecified, E66.01 - Morbid (severe) obesity due to excess calories, K21.9 - Gastro-esophageal reflux disease without esophagitis TSH reflex Free T4 6 Months E03.9 - Hypothyroidism, unspecified, E66.01 - Morbid (severe) obesity due to excess calories, K21.9 - Gastro-esophageal reflux disease without esophagitis
== END 2024-02-11 16:09 | disposition home or self-care (01) ==
PROVIDERS: PCP Internal Medicine; Visit Provider Internal Medicine
DX: E03.9 Hypothyroidism, unspecified (principal); E66.01 Morbid (severe) obesity due to excess calories; Z68.41 Body mass index [BMI] 40.0-44.9, adult; K21.9 Gastro-esophageal reflux disease without esophagitis

== ENCOUNTER → 2024-02-11 15:18 | Outpatient (BNVA) | payer OTHER, SELFPAY | PROVIDERS: PCP Internal Medicine; Visit Provider Internal Medicine ==

== ENCOUNTER 2024-02-12 15:15 | Outpatient (REF) | payer OTHER, SELFPAY ==
[2024-02-12 17:09] LABS: Alanine Aminotransferase 14 U/L (0-31); Albumin Level 4.2 g/dL (3.5-5.0); Alkaline Phosphatase 82 U/L (39-117); Anion Gap 12 (12-20); Aspartate Amino Transferase 17 U/L (5-31); Bilirubin Total 0.5 mg/dL (0.0-1.0); Blood Urea Nitrogen 14 mg/dL (9-16); Calcium 9.3 mg/dL (8.4-10.2); Carbon Dioxide 24 mmol/L (22-29); Chloride 107 mmol/L (96-108); Estimated Glomerular Filt Rate > 60; Glucose Random 91 mg/dL (60-115); Potassium 4.2 mmol/L (3.3-5.1); Sodium 139 mmol/L (135-145); Total Protein 7.4 g/dL (6.5-8.0)
[2024-02-12 17:23] LABS: TSH reflex Free T4 1.88 uIU/mL (0.32-4.0)
== END 2024-02-12 15:16 | disposition home or self-care (01) ==
LOC: HO.HMGCLDS 15:15
PROVIDERS: PCP Internal Medicine; Visit Provider Internal Medicine
DX: E78.9 Disorder of lipoprotein metabolism, unspecified (principal); E03.9 Hypothyroidism, unspecified
CPT/HCPCS: 36415; 80053; 84443

== ENCOUNTER 2024-08-14 15:25 | Outpatient (AMB) | payer OTHER, SELFPAY ==
[2024-08-14 15:27] VITALS: BP 138/86; PULSE 96; O2SAT 97; BMI 38.5
--- NOTE | 2024-08-14 15:27 | MHC.PC.OV ---
Vital Signs 08/14/24 15:27 Height 5 ft 8 in Weight 253 lb 6 oz BMI 38.5 BP 138/86 Blood Pressure Location Rt brachial Pulse 96 Pulse Source Pulse Oximeter Pulse Oximetry (%) 97 Oxygen Delivery Method Room Air Intake Visit Reasons: Annual PE Allergies bupropion [From Wellbutrin] Adverse Reaction (Intermediate, Verified 08/14/24 15:27) anxiety, ringing in ears Medication List - Last Reconciled 08/14/24 by Anastacio Bella MD levothyroxine 150 mcg PO DAILY omeprazole 20 mg PO DAILY 90 days Tobacco use date assessed: 08/14/24 Dental Screening Dental Screen Date: 08/14/24 Did you have a dental visit in the last 12 months?: Yes Did you have a dental problem in the last 6 months where you did not have access to dental care?: No Was dental information given to patient?: Patient has dentist HPI Annual PE HPI Details PE - The patient is a 59-year-old female presenting with intermittent dull pain Left upper chest area - The pain is described as dull and sore, similar to a muscle pull, and is not severe enough to cause significant concern. - The pain is intermittent, with no specific precipitating factors identified. - The patient denies any radiation of pain to the arm or other areas, and movement or deep breathing does not exacerbate it. - There is no temporal relationship with meals or physical activity. - The patient is on levothyroxine for hypothyroidism and omeprazole for GERD without issues. - Previous lab work indicates a history of prediabetes, with successful weight loss of 10 pounds achieved. - Blood pressure has previously recorded slightly elevated levels with a recent measurement of 138, noted to pose a risk for developing hypertension. - Patient history includes a mammogram report in June and pending colon cancer screening via Cologuard, which has not been completed. EKG : no acute findings, NSR Health Maintenance - Patient lost 10 pounds, positively affecting management of prediabetes. - Mammogram completed in June; follow-up appointment needed. - Colon cancer screening reminder; Cologuard kit was received but not completed. - Regular monitoring and control of blood pressure are required due to hypertension risk. - Continue with current dosage of levothyroxine for hypothyroidism and omeprazole for GERD. 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 - Reports job involves full-time hours, and plans to retire in four years. - Caregiver responsibilities for a 90-year-old mother with Alzheimer's disease. Patient Instructions - Complete the colon cancer screening using the Cologuard kit. - Follow-up with the mammogram facility to schedule the next appointment. - Monitor blood pressure regularly to assess hypertension risk. - Continue current medication regimen as prescribed. - Maintain weight loss regimen and continue weight monitoring. - Call [facility] or [facility] for OBGYN appointments per instruction. Review of Systems - General: No fever no chills - Neurological: No headaches no dizziness - Ear nose throat: No sore throat no hearing difficulty no ear pain - Cardiovascular: No syncope, no chest pain, no palpitations - Gastrointestinal: No nausea vomiting or diarrhea - Endocrine: No polyuria polydipsia no heat intolerance - Genitourinary: No dysuria - Skin: No new complaints Physical Exam General: Cooperative, healthy appearing, comfortable, no acute distress Orientation: Patient oriented x3 Head: Normal to inspection Ears: Within normal limit visually Nose: Normal external nose present Face and sinus: Normal facial exam Eyes: Appearance normal, extraocular movement intact pupils reactive Neck: Normal visual inspection and supple Chest : no pain with palpation Respiratory: Normal respiratory effort and able to speak in complete sentences. Clear to auscultation, no stridor Cardiovascular: S1 and S2, heart and lungs are fine Breast exam declined GI: Normal to inspection. Soft to palpation and nontender Skin: Turgor normal, no acute findings Neuro: Patient oriented x3, motor sensory intact, balance intact, tandem pass Extremities: Normal to inspection, ROM intact PFSH Medical History GERD (gastroesophageal reflux disease) Hypothyroid Morbid obesity Surgical History No pertinent past surgical history Family History Father Myocardial infarction Mother Hyperlipidemia Alzheimer's disease Dementia CVD (cardiovascular disease) Brother Addisons disease Maternal Grandmother No problems noted. Maternal Grandfather No problems noted. Paternal Grandfather No problems noted. Paternal Grandmother No problems noted. Paternal Uncle Diabetes mellitus Brother No problems noted. Brother No problems noted. Brother No problems noted. Sister No problems noted. Daughter No problems noted. Other Mental health disorder Social History Housing: Apartment Alcohol intake: current Alcohol intake frequency: holidays/special occasions only Patient Tobacco Use Status: Former Tobacco user Years Smoked: 30 years e-Cigarette/Vaping Use: Never Used service: No Current occupational status: employed Cognitive needs: No Hearing needs: No Vision needs: No Questionnaire PHQ-9 Over the last 2 weeks, how often have you been bothered by any of the following problems? 1. Little interest or pleasure in doing things: not at all 2. Feeling down, depressed, or hopeless: not at all 3. Trouble falling or staying asleep, or sleeping too much: not at all 4. Feeling tired or having little energy: not at all 5. Poor appetite or overeating: not at all 6. Feeling bad about yourself - or that you are a failure or have let yourself or your family down: not at all 7. Trouble concentrating on things, such as reading the newspaper or watching television: not at all 8. Moving or speaking so slowly that other people could have noticed. Or the opposite - being so fidgety or restless that you have been moving around a lot more than usual: not at all 9. Thoughts that you would be better off or of hurting yourself in some way: not at all Total score: 0 Depression Screening Interpretation: Negative Depression Screening Done: Yes 44365 - PHQ-9 Billing: Yes Source: Developed by Drs. Yoni Eaton, Maris mOalley, Cong Cote and colleagues, with an educational alexa from [employer]. Thrive Questionnaire Date Thrive assessed: 08/14/24 I am a: Patient What is your living situation today?: I have a steady place to live Within the past 12 months, did the food you bought not last and you didn't have the money to get more?: Never true Within the past 12 months, did you worry whether your food would run out before you got money to buy more?: Never true Do you have trouble paying for medicines?: No Do you have trouble getting transportation to medical appointments?: No Do you have trouble paying your heating and electricity bill?: No Do you have trouble taking care of your child, family member or friend?: No Do you have trouble with day-to-day activities such as bathing, preparing meals, shopping, managing finances, etc.?: No Are you currently unemployed and looking for a job?: No Are you interested in more education?: No Please select the resources that you would like help with: None Currently or been in a relationship where the following occur: No concerns reported THRIVE Score: 0 AUDIT C Alcohol Use Questionnaire (AUDIT-C) 1. How often do you have a drink containing alcohol?: Monthly or less 2. How many drinks containing alcohol do you have on a typical day when you are drinking?: 1 or 2 3. How often do you have six or more drinks on one occasion?: Never Total Score: 1 Score Reviewed/Action Taken: Yes MONICO-7 AMB Questionnaire MONICO-7 Date MONICO - 7 assessed: 08/14/24 Feeling nervous, anxious, or on edge: 0 = Not at all Not being able to stop or control worryin = Not at all Worrying too much about different things: 0 = Not at all Trouble relaxin = Not at all Being so restless that it is hard to sit still: 0 = Not at all Becoming easily annoyed or irritable: 0 = Not at all Feeling afraid as if something awful might happen: 0 = Not at all Total MONICO-7 score (0-4 normal; 5-9 mild; 10-14 moderate; 15-21 severe): 0 Source: Developed by Drs. Yoni Eaton, Maris Omalley, Cong Cote and colleagues, with an educational alexa from [employer]. MONICO-7 Assessment Billing MONICO-7 Assessment Tool: MONICO-7 Assessment 82008 Physical exam (Primary Care) Vital Signs: Last Vital Signs Pulse 96 08/14/24 15:27 BP 138/86 08/14/24 15:27 Pulse Ox 97 08/14/24 15:27 Oxygen Delivery Method Room Air 08/14/24 15:27 BMI result Body Mass Index 38.5 Tobacco/Smoking Status: Tobacco use Status Tobacco use date assessed 08/14/24 08/14/24 15:28 Patient Tobacco Use Status Former Tobacco user 08/14/24 15:28 e-Cigarette/Vaping Use Never Used 08/14/24 15:28 PHQ-9: PHQ-9 Score PHQ-9: Total score 0 08/14/24 15:28 Depression Screening Interpretation: Negative Thrive Assessment: Date of Thrive Assessment Date Thrive assessed 08/14/24 08/14/24 15:28 Currently or been in a relationship where the following occur: No concerns reported Office Procedures EKG 62180-[id number], Complete Coding Level of Care Code Est Pt Level 3 (91177) Est Pt Prev Care 40-64y(65744) Diagnoses Encounter for general adult medical examination with abnormal findings Z00.01 Other chest pain R07.89 Chest pain type: other chest pain Morbid obesity due to excess calories E66.01 Chronic GERD K21.9 Hypothyroidism, unspecified type E03.9 Hypothyroidism type: unspecified CPT Codes EKG - CPT: 82370-[id number], Complete ([id number]) Additional Codes MONICO-7 Assessment Billing - MONICO-7 Assessment Tool: MONICO-7 Assessment 76145 ([id number]) PHQ-9 - 50570 - PHQ-9 Billing: Yes ([id number]) Assessment & Plan Assessment & Plan (1) Encounter for general adult medical examination with abnormal findings: Code(s): Z00.01 - Encounter for general adult medical examination with abnormal findings Category: Medical (2) Chest pain: Code(s): R07.9 - Chest pain, unspecified Category: Medical Qualifiers: Chest pain type: other chest pain Qualified Code(s): R07.89 - Other chest pain (3) Morbid obesity due to excess calories: Code(s): E66.01 - Morbid (severe) obesity due to excess calories Category: Medical (4) Chronic GERD: Code(s): K21.9 - Gastro-esophageal reflux disease without esophagitis Category: Medical (5) Hypothyroidism: Code(s): E03.9 - Hypothyroidism, unspecified Category: Medical Qualifiers: Hypothyroidism type: unspecified Qualified Code(s): E03.9 - Hypothyroidism, unspecified Plan PE - The patient is a 59-year-old female presenting with intermittent dull pain Left upper chest area - The pain is described as dull and sore, similar to a muscle pull, and is not severe enough to cause significant concern. - The pain is intermittent, with no specific precipitating factors identified. - The patient denies any radiation of pain to the arm or other areas, and movement or deep breathing does not exacerbate it. - There is no temporal relationship with meals or physical activity. - The patient is on levothyroxine for hypothyroidism and omeprazole for GERD without issues. - Previous lab work indicates a history of prediabetes, with successful weight loss of 10 pounds achieved. - Blood pressure has previously recorded slightly elevated levels with a recent measurement of 138, noted to pose a risk for developing hypertension. - Patient history includes a mammogram report in June and pending colon cancer screening via Cologuard, which has not been completed. EKG : no acute findings, NSR Health Maintenance - Patient lost 10 pounds, positively affecting management of prediabetes. - Mammogram completed in June; follow-up appointment needed. - Colon cancer screening reminder; Cologuard kit was received but not completed. - Regular monitoring and control of blood pressure are required due to hypertension risk. - Continue with current dosage of levothyroxine for hypothyroidism and omeprazole for GERD. 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 - Reports job involves full-time hours, and plans to retire in four years. - Caregiver responsibilities for a 90-year-old mother with Alzheimer's disease. Patient Instructions - Complete the colon cancer screening using the Cologuard kit. - Follow-up with the mammogram facility to schedule the next appointment. - Monitor blood pressure regularly to assess hypertension risk. - Continue current medication regimen as prescribed. - Maintain weight loss regimen and continue weight monitoring. - Call [facility] or [facility] for OBGYN appointments per instruction. Orders: Orders Complete Blood Count Auto Diff 5 Months E03.9 - Hypothyroidism, unspecified, E66.01 - Morbid (severe) obesity due to excess calories, K21.9 - Gastro-esophageal reflux disease without esophagitis, R07.89 - Other chest pain, Z00.01 - Encounter for general adult medical examination with abnormal findings Lipid Panel 5 Months E03.9 - Hypothyroidism, unspecified, E66.01 - Morbid (severe) obesity due to excess calories, K21.9 - Gastro-esophageal reflux disease without esophagitis, R07.89 - Other chest pain, Z00.01 - Encounter for general adult medical examination with abnormal findings TSH reflex Free T4 5 Months E03.9 - Hypothyroidism, unspecified, E66.01 - Morbid (severe) obesity due to excess calories, K21.9 - Gastro-esophageal reflux disease without esophagitis, R07.89 - Other chest pain, Z00.01 - Encounter for general adult medical examination with abnormal findings Hemoglobin A1c 5 Months E03.9 - Hypothyroidism, unspecified, E66.01 - Morbid (severe) obesity due to excess calories, K21.9 - Gastro-esophageal reflux disease without esophagitis, R07.89 - Other chest pain, Z00.01 - Encounter for general adult medical examination with abnormal findings Comprehensive [place]. Panel Fast 5 Months E03.9 - Hypothyroidism, unspecified, E66.01 - Morbid (severe) obesity due to excess calories, K21.9 - Gastro-esophageal reflux disease without esophagitis, R07.89 - Other chest pain, Z00.01 - Encounter for general adult medical examination with abnormal findings Referrals [facility] [employer] [facility] Referral Z01.419 - Encounter for gynecological examination (general) (routine) without abnormal findings
== END 2024-08-14 16:50 | disposition home or self-care (01) ==
LOC: HO.HMCC 15:26
PROVIDERS: PCP Internal Medicine; Visit Provider Internal Medicine
DX: Z00.01 Encounter for general adult medical examination with abnormal findings (principal); R07.89 Other chest pain; E66.01 Morbid (severe) obesity due to excess calories; Z68.38 Body mass index [BMI] 38.0-38.9, adult; K21.9 Gastro-esophageal reflux disease without esophagitis; E03.9 Hypothyroidism, unspecified

== ENCOUNTER → 2024-08-14 15:25 | Outpatient (BNVA) | payer OTHER, SELFPAY | PROVIDERS: PCP Internal Medicine; Visit Provider Internal Medicine | DX: Z00.01 Encounter for general adult medical examination with abnormal findings (principal); R07.89 Other chest pain; E66.01 Morbid (severe) obesity due to excess calories; Z68.38 Body mass index [BMI] 38.0-38.9, adult; K21.9 Gastro-esophageal reflux disease without esophagitis; E03.9 Hypothyroidism, unspecified; Z79.899 Other long term (current) drug therapy | CPT/HCPCS: 93005; 96127 ==

== ENCOUNTER 2025-01-22 16:15 | Outpatient (REF) | payer OTHER, SELFPAY ==
--- NOTE | ~2025-01-22 | MM_ITS ---
EXAMINATION: MM SCREENING DIGITAL BREAST TOMOSYNTHESIS, BILATERAL CLINICAL INFORMATION: Screening. Asymptomatic. COMPARISON: Comparison made to multiple prior, most recent July 04, 2023, and most remote August 04, 2009. TECHNIQUE: Digital breast tomosynthesis is performed in mediolateral oblique and craniocaudal views along with computer-aided detection (CAD). Synthesized 2D images are generated from the tomosynthesis. FINDINGS: BREAST COMPOSITION: There are scattered areas of fibroglandular density. BILATERAL BREASTS: No significant masses, suspicious calcifications or other abnormalities are seen in either breast. MM/MM tomosynthesis screening BI IMPRESSION: BILATERAL BREASTS: Negative, no mammographic evidence of malignancy. Normal interval follow-up is recommended in 12 months. ASSESSMENT: BI-RADS: Category 1: Negative RECOMMENDATION: Routine annual mammography screening. FOLLOW-UP: 1 year F/U This examination should not preclude the clinical evaluation of a suspicious palpable abnormality. This patient's information was entered into a reminder system with a target due date for their next mammogram. Electronically signed by: Nadia Arce MD 01/26/2025 08:02 AM EDT
--- OUTSIDE RECORDS SUMMARY | 2025-01-22 16:19 | XMS_ITS | Patient Health Record ---
Author Organization [facility] Address [address] [place] [address] Care Team Providers Care Pattern Checker Name Role Phone Estefanía Niño Primary Care Provider Yoni Nguyen Unavailable [phone] Reason For Referral No Information Medications Medication SIG (Take, Route, Frequency, Duration) Notes Start Date End Date Status Magnesium Active Black Mar Concentrate Active Levothyroxine Sodium 75 MCG Oral for 30 Active Aspir-81 prn Active Garlic Active Social History Tobacco Use: Social History Observation Description Date Details (start date - stop date) Former Smoker NA - NA Tobacco Use/Smoking Question Answer Notes Patient is a former smoker How long has it been since you last smoked? > 10 years Alcohol Screen Question Answer Notes Did you have a drink contain ing alcohol in the past year? Yes How often did you have a dri nk containing alcohol in the past year? Monthly or less (1 point) How many drinks did you have on a typical day when you were drinking in the past year? 1 or 2 drinks (0 point) Points 1 Interpretation Negative Section Notes: Nonsmoker; no sig alcohol Problems Problem Type SNOMED Code ICD Code Onset Dates Problem Status W/U Status Risk Notes Problem [id number] Encounter for screening for malignant neoplasm of colon (Z12.11) Active confirmed Problem [id number] Preprocedural examination (Z01.818) Active confirmed Plan Of Treatment Future Test Test Name Order Date COLONOSCOPY 10/29/2017 Insurance Providers Payer Name Payer Address Payer Phone Subscriber Number Group Number Insured Name Patient Relationship to Insured Coverage Start Date Coverage End Date [facility] [address] [facility] [phone] [id number] JACKIE SHAY Self - patient is the insured Medical (General) History Medical History History ICD Code Hypothyroidism Denies AK,DM,CVA,Lung disease,renal dise ase
== END 2025-01-22 16:16 | disposition home or self-care (01) ==
LOC: HO.MAMMO 16:15
PROVIDERS: Visit Provider Internal Medicine
DX: Z12.31 Encounter for screening mammogram for malignant neoplasm of breast (principal)
CPT/HCPCS: 77063; 77067

== ENCOUNTER → 2025-01-22 16:30 | Outpatient (BNV) | payer OTHER, SELFPAY | PROVIDERS: Visit Provider Radiology Body Imaging | DX: Z12.31 Encounter for screening mammogram for malignant neoplasm of breast (principal) | CPT/HCPCS: 77063; 77067 ==

== ENCOUNTER 2025-02-10 08:40 | Outpatient (REF) | payer OTHER, SELFPAY ==
--- OUTSIDE RECORDS SUMMARY | 2025-02-10 09:09 | XMS_ITS | Patient Health Record ---
Author Organization [facility] Address [address] [place] [address] Care Team Providers Care Fixture Designer Name Role Phone Estefanía Niño Primary Care Provider Yoni Nguyen Unavailable [phone] Reason For Referral No Information Medications Medication SIG (Take, Route, Frequency, Duration) Notes Start Date End Date Status Magnesium Active Black Mar Concentrate Active Levothyroxine Sodium 75 MCG Oral; Duration: 30 Active Aspir-81 prn Active Garlic Active [...] Problem Status W/U Status Risk Notes Problem Screening for malignant neoplasm of colon ([id number]) Encounter for screening for malignant neoplasm of colon (Z12.11) Active confirmed Problem Preprocedural examination ([id number]) Preprocedural examination (Z01.818) Active confirmed Plan Of Treatment Future Test Test Name Order Date COLONOSCOPY 10/29/2017 Insurance Providers Payer Name Payer Address Payer Phone Subscriber Number Group Number Insured Name Patient Relationship to Insured Coverage Start Date Coverage End Date [facility] [address] [facility] [phone] [id number] JACKIE SHAY Self - patient is the insured Medical (General) History Medical History History ICD Code Hypothyroidism Denies PR,DM,CVA,Lung disease,renal dise ase
[2025-02-10 10:15] LABS: MANUAL DIFF FLAG NO
[2025-02-10 10:23] LABS: Hematocrit 44.9 % (37.0-47.0); Hemoglobin 14.5 g/dl (12.0-16.0); Imm Gran Abs Auto 0.02 X10*3/uL (0.00-0.03); Imm Gran Pct Auto 0.4 % (0.0-0.4); Lymphocytes Absolute Auto 1.8 X10*3/uL (1.2-4.9); Mean Corpuscular HGB Conc 32.3 g/dl (31.0-35.0); Mean Corpuscular Hemoglobin 27.2 pg (27.0-33.0); Mean Corpuscular Volume 84.1 fL (80.0-98.0); NRBC Abs Auto 0.000 X10*3/uL (0.0-0.012); NRBC Pct Auto 0.0 /100WBC (0.0-0.2); Platelet Count 326 X10*3/uL (160-400); Red Blood Count 5.34 X10*6/uL (4.20-5.50); White Blood Count 4.5 X10*3/uL (4.8-10.8)
[2025-02-10 10:53] LABS: Alanine Aminotransferase 19 U/L (0-31); Albumin Level 4.3 g/dL (3.5-5.0); Alkaline Phosphatase 75 U/L (39-117); Anion Gap 12 (12-20); Aspartate Amino Transferase 24 U/L (5-31); Blood Urea Nitrogen 14 mg/dL (9-16); Calcium 9.2 mg/dL (8.4-10.2); Carbon Dioxide 25 mmol/L (22-29); Chloride 109 mmol/L (96-108); Cholesterol 213 mg/dL (<200); Estimated Glomerular Filt Rate > 60; HDL Cholesterol 46 mg/dL (>40); Potassium 4.5 mmol/L (3.3-5.1); Sodium 141 mmol/L (135-145); Total Protein 7.2 g/dL (6.5-8.0); Triglycerides 108 mg/dL (<150)
[2025-02-17 15:03] LABS: Vitamin D 25-OH, D2 <4 ng/mL; Vitamin D 25-OH, D3 22 ng/mL; Vitamin D 25-OH, Total 22 ng/mL (30-100)
== END 2025-02-10 08:41 | disposition home or self-care (01) ==
LOC: HO.HMGCLDS 08:40
PROVIDERS: PCP Internal Medicine; Visit Provider Internal Medicine
DX: Z00.01 Encounter for general adult medical examination with abnormal findings (principal); E03.9 Hypothyroidism, unspecified; E66.01 Morbid (severe) obesity due to excess calories; E66.812 Obesity, class 2; K21.9 Gastro-esophageal reflux disease without esophagitis; R07.89 Other chest pain; R03.0 Elevated blood-pressure reading, without diagnosis of hypertension; E66.09 Other obesity due to excess calories; Z23 Encounter for immunization; Z68.38 Body mass index [BMI] 38.0-38.9, adult; Z79.899 Other long term (current) drug therapy
CPT/HCPCS: 36415; 80053; 80061; 82306; 83036; 84443; 85025; 90471; 90656; 96127

== ENCOUNTER 2025-02-10 14:53 | Outpatient (AMB) | payer OTHER, SELFPAY ==
[2025-02-10 15:04] VITALS: BP 140/92; PULSE 101; RESP 16; O2SAT 98; BMI 38.6
--- NOTE | 2025-02-10 15:04 | A.OFFPC_ITS ---
Vital Signs 02/10/25 15:04 02/10/25 15:22 Height 5 ft 8 in Weight 254 lb BMI 38.6 BP 140/92 H 132/80 Blood Pressure Location Lt brachial Rt brachial Position Sitting Sitting Respiration 16 Pulse 101 H Pulse Source Pulse Oximeter Pulse Oximetry (%) 98 Oxygen Delivery Method Room Air Intake Visit Reasons: 6m follow up Pharmaceutical Scientist Required: No Accompanied by: Self / Same As Patient Allergies bupropion (From Wellbutrin) Adverse Reaction (Intermediate, Verified 02/10/25 15:07) anxiety, ringing in ears Medication List - Last Reconciled 02/10/25 by Anastacio Bella MD levothyroxine 150 mcg PO DAILY omeprazole 20 mg PO DAILY 90 days Tobacco use date assessed: 02/10/25 Dental Screening Dental Screen Date: 08/14/24 Did you have a dental visit in the last 12 months?: Yes Did you have a dental problem in the last 6 months where you did not have access to dental care?: No Was dental information given to patient?: Patient has dentist HPI 6m follow up HPI Details History of Present Illness The patient is a 59-year-old female presenting with thyroid management and gastroesophageal reflux disease, with elevated blood pressure. Thyroid Management: - The patient is here for a routine six- month follow-up on thyroid management. - thyroid function is stable Gastroesophageal Reflux Disease (GERD): - The patient is here for a routine six- month follow-up to evaluate GERD. - symptoms controlled. Elevated Blood Pressure: - The patient reports feeling slightly a nxious, which she attributes to having to visit her mother's residence. - Previous blood pressure recorded at 13 in July; current reading is 140 systolic. - The patient associates the anxiety wit h impending visiting her mother, who has dementia - There is a family history of hypertens ion. Diagnostic Results: - Labs: No anemia, normal kidney functio n, A1c is 5.4, liver enzymes were noted to be fine, cholesterol slightly elevated, Vitamin D results pending Problem List - Hypertension - Thyroid Management - Gastroesophageal Reflux Disease (GERD) - obesity with BMI of 38.6 Plan - Follow-up in three months for blood pr essure check due to observed elevation at this visit. - Start taking [id number]-[id number] Vitamin D3 1000 units daily, ensuring separation from levothyroxine administration. - Continue current thyroid medication betty demarco, maintaining spacing between Vitamin D supplement and levothyroxine intake. - Monitor blood pressure; consideration for treatment initiation if it consistently reaches 140/92 mmHg. - Advocate for safe sun exposure to aid in Vitamin D synthesis but caution against overexposure due to skin cancer risk. - Discussed anxiety management related t o familial stressors. Follow-up 3 months Review of Systems - General: No fever no chills - Neurological: No headaches no dizziness - Ear nose throat: No sore throat no hearing difficulty no ear pain - Cardiovascular: No syncope, no chest pain, no palpitations - Gastrointestinal: No nausea vomiting or diarrhea - Endocrine: No polyuria polydipsia no heat intolerance - Genitourinary: No dysuria , no blood in urine Physical Exam General: No acute distress HEENT: No acute findings Neck: Supple Respiratory system: Able to talk in full sentences, no audible wheeze Cardiovascular: S1-S2 regular in rate and rhythm, heart rate slightly elevated Gastrointestinal: No pain Extremities: No new findings 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 Maternal Grandfather No problems noted. Paternal Grandfather No problems noted. Paternal Grandmother No problems noted. Paternal Uncle Diabetes mellitus Brother No problems noted. Brother No problems noted. Brother No problems noted. Sister No problems noted. Daughter No problems noted. Other Mental health disorder Social History Housing: Apartment Alcohol intake: current Alcohol intake frequency: holidays/special occasions only Patient Tobacco Use Status: Former Tobacco user Years Smoked: 30 years e-Cigarette/Vaping Use: Never Used service: No Current occupational status: employed Cognitive needs: No Hearing needs: No Vision needs: No Questionnaire PHQ-9 Over the last 2 weeks, how often have you been bothered by any of the following problems? 1. Little interest or pleasure in doing things: not at all 2. Feeling down, depressed, or hopeless: not at all 3. Trouble falling or staying asleep, or sleeping too much: not at all 4. Feeling tired or having little energy: not at all 5. Poor appetite or overeating: not at all 6. Feeling bad about yourself - or that you are a failure or have let yourself or your family down: not at all 7. Trouble concentrating on things, such as reading the newspaper or watching television: not at all 8. Moving or speaking so slowly that other people could have noticed. Or the opposite - being so fidgety or restless that you have been moving around a lot more than usual: not at all 9. Thoughts that you would be better off or of hurting yourself in some way: not at all Total score: 0 Depression Screening Interpretation: Negative Depression Screening Done: Yes 02601 - PHQ-9 Billing: Yes Source: Developed by Drs. Yoni Eaton, Maris Omalley, Cong Cote and colleagues, with an educational alexa from [employer]. Thrive Questionnaire Date Thrive assessed: 08/11/24 I am a: Patient What is your living situation today?: I have a steady place to live Within the past 12 months, did the food you bought not last and you didn't have the money to get more?: Never true Within the past 12 months, did you worry whether your food would run out before you got money to buy more?: Never true Do you have trouble paying for medicines?: No Do you have trouble getting transportation to medical appointments?: No Do you have trouble paying your heating and electricity bill?: No Do you have trouble taking care of your child, family member or friend?: No Do you have trouble with day-to-day activities such as bathing, preparing meals, shopping, managing finances, etc.?: No Are you currently unemployed and looking for a job?: No Are you interested in more education?: No Please select the resources that you would like help with: None Currently or been in a relationship where the following occur: No concerns re ported THRIVE Score: 0 MONICO-7 AMB Questionnaire MONICO-7 Date MONICO - 7 assessed: 02/10/25 Feeling nervous, anxious, or on edge: 0 = Not at all Not being able to stop or control worryin = Not at all Worrying too much about different things: 0 = Not at all Trouble relaxin = Not at all Being so restless that it is hard to sit still: 0 = Not at all Becoming easily annoyed or irritable: 0 = Not at all Feeling afraid as if something awful might happen: 0 = Not at all Total MONICO-7 score (0-4 normal; 5-9 mild; 10-14 moderate; 15-21 severe): 0 Source: Developed by Drs. Yoni Eaton, Maris Omalley, Cong Cote and colleagues, with an educational alexa from [employer]. MONICO-7 Assessment Billing MONICO-7 Assessment Tool: MONICO-7 Assessment 09030 Physical exam (Primary Care) Vital Signs: Last Vital Signs Pulse 101 H 02/10/25 15:04 Resp 16 02/10/25 15:04 BP 132/80 02/10/25 15:22 Pulse Ox 98 02/10/25 15:04 Oxygen Delivery Method Room Air 02/10/25 15:04 BMI result Body Mass Index 38.6 Tobacco/Smoking Status: Tobacco use Status Tobacco use date assessed 02/10/25 02/10/25 15:09 Patient Tobacco Use Status Former Tobacco user 02/10/25 15:09 e-Cigarette/Vaping Use Never Used 02/10/25 15:09 PHQ-9: PHQ-9 Score PHQ-9: Total score 0 02/10/25 15:23 Depression Screening Interpretation: Negative Thrive Assessment: Date of Thrive Assessment Date Thrive assessed 08/11/24 02/10/25 15:09 Currently or been in a relationship where the following occur: No concerns reported Office Procedures Flu Questionnaire Does the patient have a severe egg allergy?: No Does the patient have severe life threatening allergies?: No Does the patient have a fever or illness today?: No Has the patient ever had Guillain-Walsh Syndrome?: No Has the patient ever had any past reaction to a flu shot?: No Immunizations Fluarix 1557-2120 (PF) 45 mcg (15 mcg x 3)/0.5 mL IM syringe Performing Provider: Anastacio Bella MD Performing Location: [facility] – [place] [facility] Administered by: Francisco Borrero CMA on 02/10/25 15:23 Dose Route Admin Location Dispensed Lot Number Expiration Date NDC Associate Accountant 0.5 mL IM Right Deltoid 0.5 mL [id number] 10/26/25 [id number] [employer] VIS Given Date VIS Provided VIS Publication Date 02/10/25 Single Vaccine 24 Eligibility Eligibility Date Funding Source Not [facility] Eligible 02/10/25 Private Coding Level of Care Code Est Pt Level 3 (17677) Diagnoses Hypothyroidism, unspecified type E03.9 Hypothyroidism type: unspecified Chronic GERD K21.9 Elevated blood pressure reading R03.0 Class 2 obesity due to excess calories without serious comorbidity with body mass index (BMI) of 38.0 to 38.9 in adult E66.812; E66.09; Z68.38 Body mass index: BMI 38.0-38.9 Obesity classification: adult class 2 (BMI 35 - 39.9) Serious obesity comorbidity presence: without serious comorbidity Additional Codes MONICO-7 Assessment Billing - MONICO-7 Assessment Tool: MONICO-7 Assessment 83142 ([id number]) PHQ-9 - 68826 - PHQ-9 Billing: Yes ([id number]) Assessment & Plan Assessment & Plan (1) Hypothyroidism: Code(s): E03.9 - Hypothyroidism, unspecified Category: Medical Qualifiers: Hypothyroidism type: unspecified Qualified Code(s): E03.9 - Hypothyroidism, unspecified (2) Chronic GERD: Code(s): K21.9 - Gastro-esophageal reflux disease without esophagitis Category: Medical (3) Elevated blood pressure reading: Code(s): R03.0 - Elevated blood-pressure reading, without diagnosis of hypertension Category: Medical (4) Obesity due to excess calories: Code(s): E66.09 - Other obesity due to excess calories Category: Medical Qualifiers: Body mass index: BMI 38.0-38.9 Obesity classification: adult class 2 (BMI 35 - 39.9) Serious obesity comorbidity presence: without serious comorbidity Qualified Code(s): E66.812 - Obesity, class 2; E66.09 - Other obesity due to excess calories; Z68.38 - Body mass index [BMI] 38.0-38.9, adult Plan Thyroid Management: - The patient is here for a routine six-month follow-up on thyroid management. - thyroid function is stable Gastroesophageal Reflux Disease (GERD): - The patient is here for a routine six-month follow-up to evaluate GERD. - symptoms controlled. Elevated Blood Pressure: - The patient reports feeling slightly anxious, which she attributes to having to visit her mother's residence. - Previous blood pressure recorded at 138/86 in July; current reading is 140 systolic. - The patient associates the anxiety with impending visiting her mother, who has dementia - There is a family history of hypertension. Diagnostic Results: - Labs: No anemia, normal kidney function, A1c is 5.4, liver enzymes were noted to be fine, cholesterol slightly elevated, Vitamin D results pending Problem List - Hypertension - Thyroid Management - Gastroesophageal Reflux Disease (GERD) - obesity with BMI of 38.6 Plan - Follow-up in three months for blood pressure check due to observed elevation at this visit. - Start taking ygbd-[id number]-mpemlyt Vitamin D3 1000 units daily, ensuring separation from levothyroxine administration. - Continue current thyroid medication management, maintaining spacing between Vitamin D supplement and levothyroxine intake. - Monitor blood pressure; consideration for treatment initiation if it consistently reaches 140/92 mmHg. - Advocate for safe sun exposure to aid in Vitamin D synthesis but caution against overexposure due to skin cancer risk. - Discussed anxiety management related to familial stressors. Follow-up 3 months Orders: Orders Influenza [id number] Immunization Today Z23 - Encounter for immunization
[2025-02-10 15:22] VITALS: BP 132/80
== END 2025-02-10 15:24 | disposition home or self-care (01) ==
LOC: HO.HMCC 14:54
PROVIDERS: PCP Internal Medicine; Visit Provider Internal Medicine
DX: E03.9 Hypothyroidism, unspecified (principal); K21.9 Gastro-esophageal reflux disease without esophagitis; R03.0 Elevated blood-pressure reading, without diagnosis of hypertension; E66.812 Obesity, class 2; E66.09 Other obesity due to excess calories; Z68.38 Body mass index [BMI] 38.0-38.9, adult; Z23 Encounter for immunization